=== PATIENT | female | born 1995 | race African-American/Black ===

== ENCOUNTER 2025-02-04 12:32 | Outpatient (AMB) | payer OTHER, SELFPAY ==
--- NOTE | 2025-02-04 12:52 | MHC.OFFVIS ---
Intake Visit Reasons: EPILEPSY Allergies peanut Allergy (Unknown, Verified 01/28/25 09:15) Unknown Seasonal Allergies Allergy (Unknown, Verified 01/28/25 09:15) Unknown HPI Comments Details: The patient is a 29-year-old female presenting with a history of epilepsy, diagnosed during four years ago. The seizures are characterized by an aura of altered sensory perception followed by generalized tonic-clonic activity, mild shaking, and postictal symptoms of fatigue and headaches. The patient has been off her antiepileptic medication (Keppra) for two years and reported the last seizure as having occurred in June over ten months ago. There is no documentation of injuries linked to her seizures, and she does not drive, adhering to safety measures due to her condition. A positive family history of seizures exists on her paternal side, but she denies any similar episodes in her children. The patient also reports past episodes of syncope during childhood summer months. Her medical history included EEG and MRI, with no recent repeat evaluations. [facility] Medical History (Updated 02/04/25 @ 13:14 by Mary Downing MD) Obesity HLD (hyperlipidemia) Epilepsy Hypertension Surgical History (Updated 01/28/25 @ 09:13 by Shereen Paz CMA) Hx of cholecystectomy Hx of tonsillectomy Family History (Updated 01/28/25 @ 09:15 by Shereen Paz CMA) Mother Diabetes mellitus Lupus (systemic lupus erythematosus) Hypertension Stroke Brain aneurysm Review of Systems Const Details: - Neurological: Reports seizures characterized by auras, tonic-clonic movements, postictal fatigue and headaches. Denies recent seizures since June. - Musculoskeletal: Denies any recent head injuries. - Psychiatric: Denies any hallucinations or delusions. Physical Exam Neuro Other: Mental Status: Alert and oriented to person, place, and time. Normal attention. Normal spontaneous speech, fluency, and comprehension. No obvious issues with mood and memory. Affect is appropriate. Cranial Nerves: CN II: Visual franco full to confrontation, visual acuity intact. CN III, IV, : Pupils equal, round, reactive to light and accommodation. Extraocular movements are normal. CN V: Facial sensation is normal. CN VII: Facial movements symmetrical. CN VIII: Hearing intact to bedside conversation is normal. CN IX, X: Palate elevates symmetrically. CN XI: Shoulder shrug and head turn symmetrical. CN XII: Tongue midline without atrophy or fasciculations. Motor: Bulk and tone normal in all extremities. No significant muscle weakness in arms and legs. No drift. Reflexes: Deep tendon reflexes 2+ and symmetric. Plantar response down-going bilaterally. Coordination: Xiejgx-[id number] and giwp-kr-wyts testing normal. No dysmetria. Gait and Station: No obvious gait abnormality. No ataxia or instability. Extrapyramidal: Full facial expressions and blinking. No rigidity. Movements are appropriate with no tremor or abnormality. Speech: Normal; no dysarthria or tremor. Assessment & Plan Assessment & Plan (1) Epilepsy: Code(s): G40.909 - Epilepsy, unspecified, not intractable, without status epilepticus Category: Medical Qualifiers: Epilepsy type: unspecified Intractability: not intractable Status epilepticus: without status epilepticus Qualified Code(s): G40.909 - Epilepsy, unspecified, not intractable, without status epilepticus Plan: I will work with her to evaluate the need for continued medication or alternate strategies following further diagnostic evaluation with repeat EEG and MRI review. Access to historical test data will aid in addressing concerns of whether epilepsy is ongoing in subtler forms. Despite remaining off medication, the importance of diagnostics for seizure prediction and prevention was emphasized?utilizing EEG to potentially observe electrical activity. Recommendations of non-pharmacological considerations were given, aligned with her driving status and lifestyle risks. We may need to revisit pharmacotherapy if clinical risk assessment dictates. Exploring genetic predispositions is also a consideration given familial history. Plan Impression and recommendations: 29 years old woman probably with epilepsy comprised of complex partial secondarily generalized seizures of unknown etiology. She has not been taking any medicine and her last seizure was in June of 2024. We had bertrand discussion about diagnostic and therapeutic approach of this condition. Baseline EEG was requested and she was advised to fracture previous EEGs and bring CTA of her brain scan for review at next visit. Orders: Orders EEG electroencephalogram Today G40.909 - Epilepsy, unspecified, not intractable, without status epilepticus Coding Level of Care Code New Pt Level 4 (70098) Diagnoses Nonintractable epilepsy without status epilepticus, unspecified epilepsy type G40.909 Epilepsy type: unspecified Intractability: not intractable Status epilepticus: without status epilepticus
--- OUTSIDE RECORDS SUMMARY | 2025-02-04 13:40 | XMS_ITS | Clinical Summary ---
Author Organization [facility] ity Address [address] [place] [address] Care Team Providers Care Bulb Packer Name Role Phone Unavailable Primary Care Provider Unavailabl e Social History Tobacco Use Types Packs/Day Years Used Date Smoking Tobacco: Never Assessed Comments Unknown Sex and Gender Information Value Date Recorded Sex Assigned at Not on file Legal Sex Female 6:57 PM EST Gender Identity Not on file Sexual Orientation Not on file Plan of Treatment Health Maintenance Due Date Last Done Comments DTaP,Tdap,and Td Vaccines (1 - Tdap) 2015 Hepatitis B Vaccines (1 of 3 - 19+ 3-dose series) 2015 Cervical Cancer Screening: P ap Smear 2017 HIV Screening 05/15/2022 Hepatitis C Screening 05/15/2022 Social Influencers of Health Screening 05/15/2022 COVID-19 Vaccine ( - 2023-2 5 season) 2024 Depression Screening 06/13/2024 Influenza Vaccine (#1) 2025 HIB Vaccines Aged Out No longer eligi ble based on patient's age to complete this topic HPV Vaccines Aged Out No longer eligi ble based on patient's age to complete this topic Hepatitis A Vaccines Aged Out No long er eligible based on patient's age to complete this topic IPV Vaccines Aged Out No longer eligi ble based on patient's age to complete this topic MMR Vaccines Aged Out No longer eligi ble based on patient's age to complete this topic Meningococcal ACWY Vaccine Aged Out N o longer eligible based on patient's age to complete this topic Meningococcal B Vaccine Aged Out No l onger eligible based on patient's age to complete this topic Pneumococcal Vaccine: Pediat rics (0 to 5 Years) and At-Risk Patients (6 to 49 Years) Aged Out No longer eligible b ased on patient's age to complete this topic RSV Immunization Patients Un archie 20 months Aged Out No longer eligible b ased on patient's age to complete this topic Varicella Vaccines Aged Out No longer eligible based on patient's age to complete this topic
--- OUTSIDE RECORDS SUMMARY | 2025-02-04 13:40 | XMS_ITS | Clinical Summary ---
Author Organization [facility] Address [address] [place] [address] Care Team Providers Care First Aid Trainer Name Role Phone Kari Salcedo MD Primary Care Provider Allergies Active Allergy Reactions Criticality Noted Date Comments Peanut Rash 04/25/2020 Medications metroNIDAZOLE (FLAGYL) 500 mg tablet Take 500 mg by mouth 2 times a day. Active famotidine (PEPCID) 20 mg tablet Take 1 tablet (20 mg total) by mouth 2 times a day. 30 tablet 12/28/2018 Active amoxicillin (AMOXIL) 500 mg capsule Take 1 capsule (500 mg total) by mouth 3 times a day. 21 capsule 04/13/2019 Active vitamin ( PLUS) 27 mg iron- 1 mg tablet Take 1 tablet by mouth daily. Active sulfamethoxazol e-trimethoprim (BACTRIM DS) 800-160 mg tablet Take 1 tablet by mouth 2 times a day. Active triamcinolone acetonide (KENALOG) 0.1% creamIndication s:Dermatitis APPLY TO RASH ON BODY TWICE A DAY UNTIL RESOLVED, NOT FOR USE ON FACE. 80 g 2 09/15/2020 Active levETIRAcetam (KEPPRA) 750 mg tablet TAKE 1 TABLET BY MOUTH TWICE A DAY 60 tablet 5 09/02/2021 Active Active Problems Problem Noted Date Diagnosed Date Seizure 11/26/2019 Otalgia of right ear 12/10/2014 Impacted cerumen of right ear 12/10/2014 exam 12/01/2012 Immunizations Immunization Administration Dates Next Due Hepatitis B adult (ENGERIX-B /RECOMBIVAX HB ADULT) vaccine 1 mL IM 01/08/2017 Family History Medical History Relation Name Comments Asthma Father Hypertension Father Diabetes Mother Lupus Mother Stroke Mother Relation Name Status Comments Father Alive Mother Alive Social History Tobacco Use Types Packs/Day Years Used Date Smoking Tobacco: Never Smokeless Tobacco: Never Comments:: Alcohol Use Standard Drinks/Week Comments No 0 (1 standard drink = 0.6 oz pur e alcohol) Comments No Sex and Gender Information Value Date Recorded Sex Assigned at Not on file Legal Sex Female 1:06 AM EDT Gender Identity Not on file Sexual Orientation Not on file Last Filed Vital Signs Vital Sign Reading Time Taken Comments Blood Pressure 107/68 09/09/2020 12:32 PM EDT Pulse 78 09/09/2020 12:32 PM EDT Temperature 37 C (98.6 F) 09/09/2020 12:32 PM EDT Respiratory Rate 18 09/09/2020 12:32 PM EDT Oxygen Saturation 100% 09/09/2020 12:32 PM EDT Inhaled Oxygen Concentration - - Weight 83.9 kg (185 lb) 05/15/2020 9:33 AM EST Height 157.5 cm (5' 2 ) 05/15/2020 9:33 AM EST Body Mass Index 33.84 05/15/2020 9:33 AM EST Plan of Treatment Health Maintenance Due Date Last Done Comments HIV Screening 1996 COVID-19 Vaccine (2023-2 5 season) 2024 Alcohol/Substance Use Screening 06/13/2024 Influenza Vaccine (#1) 2025 0, 04/06/2016, 03/13/2013, Additional history exists DTaP,Tdap,and Td Vaccines (1 0 - Td or Tdap) 10/18/2029 10/19/2019, 09/02/2017, 01/08/2017, Additional history exists RSV Vaccine (60+ years old a nd patients) (1 - 1-dose 75+ series) 2071 Pneumococcal Vaccine: Pediat karissa (0-5 Years) and At-Risk Patients (6-50 Years) Completed 11/18/2000 Varicella Vaccines Completed 07/26/2011, 09/30/1998 Hepatitis B Vaccines Completed 01/08/2017, 09/29/2006, 02/26/1997, Additional history exists Insurance [employer] [facility] [employer] Advance Directives Documents on File Type Date Recorded Patient Fast Food Cook Expl [facility] Care Proxy 10/19/2012 [id number] Care Teams First Aid Trainer Relationship Specialty Start Date End Date Kari Salcedo MD PCP - General 08/21/19
--- OUTSIDE RECORDS SUMMARY | 2025-02-04 13:40 | XMS_ITS | Clinical Summary ---
Author Organization [facility] Address [address] [place] [phone] Phone Care Team Providers Care Cheerleading Coach Name Role Phone Pcp, Unknown Primary Care Provider Unavailabl e Allergies Active Allergy Reactions Criticality Noted Date Comments Peanut Rash Low 04/25/2020 Medications topiramate (TOPAMAX) 50 MG tablet Take 1 tablet (50 mg total) by mouth daily for 7 days, THEN 1 tablet (50 mg total) 2 (two) times a day for 7 days, THEN 1.5 tablets (75 mg total) 2 (two) times a day for 7 days, THEN 2 tablets (100 mg total) 2 (two) times a day for 7 days. On week 3 please take 50 mg in the morning and 100 mg at night. 70 tablet 06/24/2024 Active Social History Tobacco Use Types Packs/Day Years Used Date Smoking Tobacco: Never Smokeless Tobacco: Never Tobacco Cessation:Counseling Given: Not Answered Alcohol Use Standard Drinks/Week Comments Yes 0 (1 standard drink = 0.6 oz pur e alcohol) Education Answer Date Recorded Are you interested in more education? Not on shilpi e 06/24/2024 Are you concerned about learning? Not on file 06/24/2024 No 06/24/2024 No 06/24/2024 Digital Access Answer Date Recorded No 06/24/2024 No 06/24/2024 Reliable internet access at home? Not on file 06/24/2024 Device with a working camera? Not on file Intimate Partner Violence Answer Date R ecorded Are you denied basic needs s uch as food, clothing, or medical care? No 06/24/2024 In the past 12 months have y ou been in a relationship with a person who hurts, threatens, or tries to control you? No 06/24/2024 Are you denied basic needs s uch as food, clothing, or medical care? No 06/24/2024 In the past 12 months have y ou been in a relationship with a person who hurts, threatens, or tries to control you? No 06/24/2024 Comments Unknown Sex and Gender Information Value Date Recorded Sex Assigned at Female 06/24/2024 9:39 AM EST Legal Sex Female 3:07 PM EST Gender Identity Female 06/24/2024 9:39 AM EST Sexual Orientation Don't know 06/24/2024 10 :13 AM EST Last Filed Vital Signs Vital Sign Reading Time Taken Comments Blood Pressure 112/76 06/24/2024 12:00 PM EST Pulse 62 06/24/2024 12:00 PM EST Temperature 36.8 C (98.3 F) 06/24/2024 12:00 PM EST Respiratory Rate 11 06/24/2024 12:00 PM EST Oxygen Saturation 92% 06/24/2024 12:00 PM EST Inhaled Oxygen Concentration - - Weight 92.7 kg (204 lb 4.8 oz) 06/24/2024 9:51 A M EST Height 157.5 cm (5' 2 ) 06/24/2024 9:51 AM EST Body Mass Index 37.37 06/24/2024 9:51 AM EST Plan of Treatment Health Maintenance Due Date Last Done Comments Adult Td,Tdap Booster 1996 DEPRESSION SCREENING 2008 HEPATITIS C SCREENING 2014 HIV ONE-TIME SCREENING (18-6 5 YEARS) 2014 PAP SMEAR 2017 SMOKING STATUS SCREENING (On ce After 26 Yrs) 2022 COVID-19 VACCINE (2023-2 5 season) 2024 HEPATITIS A VACCINES Aged Out No long er eligible based on patient's age to complete this topic HIB VACCINES Aged Out No longer eligi ble based on patient's age to complete this topic MENINGOCOCCAL VACCINES (ACWY) Aged Out No longer eligible based on patient's age to complete this topic MENINGOCOCCAL VACCINES (B) Aged Out N o longer eligible based on patient's age to complete this topic PNEUMOCOCCAL VACCINES (0-49 years) Aged Out No longer eligible based on patient's age to complete this topic Medical Devices Not on file Insurance [facility] Care Teams Cheerleading Coach Relationship Specialty Start Date End Date Pcp, Unknown PCP - General 06/24/24 Additional Source Comments The information contained in this document represents components of the legal health record. It is not the complete legal health record.[facility]
--- OUTSIDE RECORDS SUMMARY | 2025-02-04 13:41 | XMS_ITS | Patient Health Record ---
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 Metabolic Panel [id number] Reviewed date:01/22/2025 07:37:03 AM Interpretation: Performing Lab:[facility], [address] [place] [address] Avenue, [place], Phone - [phone], Director - Patricia Notes/Report: Glucose 74 70-99 mg/dL BUN 13 6-20 mg/dL Creatinine 0.68 0.57-1.00 mg/dL eGFR 122 >59 mL/min/1.73 BUN/Creatinine Ratio 19 9-23 Sodium 140 134-144 mmol/L Potassium 3.8 3.5-5.2 mmol/L Chloride 104 96-106 mmol/L Carbon Dioxide, Total 18 20-29 mmol/L Calcium 9.9 8.7-10.2 mg/dL Protein, Total 7.4 6.0-8.5 g/dL Albumin 4.4 4.0-5.0 g/dL Globulin, Total 3.0 1.5-4.5 g/dL Bilirubin, Total 0.8 0.0-1.2 mg/dL Alkaline Phosphatase 62 44-121 IU/L AST (SGOT) 25 0-40 IU/L Lipid Panel With LDL/HDL Rat [id number] Reviewed date:01/22/2025 07:35:33 AM Interpretation: Performing Lab:[facility] [place], [address], [place], Phone - [phone], Director - Patricia Notes/Report: Cholesterol, Total 244 100-199 mg/dL Triglycerides 104 0-149 mg/dL HDL Cholesterol 53 >39 mg/dL VLDL Cholesterol Turner 18 5-40 mg/dL LDL Chol Calc ([facility]) 173 0-99 mg/dL LDL/HDL Ratio 3.3 0.0-3.2 ratio LDL/HDL Ratio Men Women 1/2 Avg.Risk 1.0 1.5 Avg.Risk 3.6 3.2 2X Avg.Risk 6.2 5.0 3X Avg.Risk 8.0 6.1 CBC with Diff, Platelet, NLR [id number] Reviewed date:01/22/2025 07:32:39 AM Interpretation: Performing Lab:[facility], [address], [place], Phone - [phone], Director - Patricia Notes/Report: WBC 10.5 3.4-10.8 x10E3/uL RBC 4.50 3.77-5.28 x10E6/uL Hemoglobin 12.5 11.1-15.9 g/dL Hematocrit 39.1 34.0-46.6 % MCV 87 79-97 fL MCH 27.8 26.6-33.0 pg MCHC 32.0 31.5-35.7 g/dL RDW 14.0 11.7-15.4 % Platelets 350 150-450 x10E3/uL Neutrophils 64 Not Estab. % Lymphs 28 Not Estab. % Monocytes 7 Not Estab. % Eos 1 Not Estab. % Basos 0 Not Estab. % Neutrophils (Absolute) 6.6 1.4-7.0 x10E3/uL Lymphs (Absolute) 3.0 0.7-3.1 x10E3/uL Neut/Lymph Ratio 2.2 0.0-2.9 ratio Published COVID-19 studies suggest: Low likelihood of severe COVID-19 disease progression 0.0-2.9 High likelihood of severe COVID-19 disease progression >4.9 Monocytes(Absolute) 0.7 0.1-0.9 x10E3/uL Eos (Absolute) 0.1 0.0-0.4 x10E3/uL Baso (Absolute) 0.0 0.0-0.2 x10E3/uL Immature Granulocytes 0 Not Estab. % Immature Grans (Abs) 0.0 0.0-0.1 x10E3/uL Reason For Referral Reason Pap smear Please e valuate and treat Diagnosis 1 Encounter for gyneco logical examination (general) (routine) without abnormal findings (Z01.419) Referral Organization [facility] Referring Provider First Name Rosa Referring Provider Last Name Soila Referring Provider Speciality Internal M edicine Referred Provider Specialty Assistant Professor Of Psychology General Notes Please call the ovi ent to schedule the appointment, [facility] [employer]. Please contact them at [phone], Eva Butcher 11/20/2024 04:45:07 PM > Referral Priority Routine Reason epilepsy, patient do es not want [facility] neurology Please evaluate and treat Diagnosis 1 Family history of ep ilepsy and other diseases of the nervous system (Z82.0) Referral Organization [facility] Referring Provider First Name Rosa Referring Provider Last Name Soila Referring Provider Speciality Internal M edicine Referred Provider Specialty Neurology General Notes Please call the ovi ent to schedule the appointment, Encounter created and SMS sent to the pt., Eva Butcher 12/03/2024 03:22:33 PM > Referral Priority Routine Problems Problem Type SNOMED Code ICD Code Onset Dates Problem Status W/U Status Risk Notes Problem Obese class II (037336733824867) Body mass index [BMI] 35.0-35.9, adult (Z68.35) Active confirmed Problem Essential hypertension (74784664) HTN (hypertensi on), benign (I10) Active confirmed Vital Signs Heart Rate 106 /min 01/21/2025 Temperature 97.1 degrees Fahrenheit 01/21/2025 Oximetry 98 % 01/21/2025 Blood pressure diastolic 72 mm Hg 01/21/2025 Height 5'2'' in 01/21/2025 Blood pressure systolic 110 mm Hg 01/21/2025 Weight 195.1 lbs 01/21/2025 BMI 35.68 kg/m2 01/21/2025 Encounters Encounter Location Date Provider Diagnosis [facility] [address] [place] [address] 11/14/2024 Rosa Cm HTN (hypertension), benign I10 ; Hyperlipidemia, mixed E78.2 and Obesity, class [address] [address] 01/21/2025 Rosa Cm Annual physical exam Z00.00 ; Encounter for screening for depression Z13.31 ; Obesity, class 2 E66.812 ; Body mass index [BMI] 35.0-35.9, adult Z68.35 and HTN (hypertension), benign I10 [address] [address] 12/03/2024 BIJAL HERNANDEZ Assessments Encounter Date Diagnosis (ICD Code) Assessment Notes Treatment Notes Treatment Clinical Notes Section Notes 11/14/2024 HTN (hypertension) , benign (ICD-10 - I10) 29-year-old lady overweight with history of epilepsy not on medications anymore is here today to establish PCP. Hypertension screening, blood pressure is 110/78. Currently stable we will get a basic metabolic panel. Hyperlipidemia screening check a lipid profile History of epilepsy 4 years ago was on Keppra and then tapered off. She has no seizures since 2 years. We will make a neurology referral. Obesity class II. Discussed with patient about calorie count portion control low carb diet and increasing her exercise. She understands and will follow. Anxiety and depression she denies any symptoms of anxiety or depression. Screening lab work slip given today 01/21/2025 Encounter for screening for depression (ICD-10 - Z13.31) 29-year-old lady overweight with history of epilepsy not on medications anymore is is here today for complete physical exam. Hyperlipidemia screening blood work is currently pending History of epilepsy 4 years ago was on Keppra and then tapered off. She has no seizures since 2 years. she has a neurology referral and will follow up Obesity class II. BMI 35, patient has been following strict diet, she is also doing calorie count, she does not get to exercise much due to her kids and work but is trying to lose weight. Nutritional counseling done Anxiety and depression she denies any symptoms of anxiety or depression., PHQ 9 is 0 patient has done her lab work this morning we will follow up on it Age specific screening up-to-date 01/21/2025 Annual physical exam (ICD-10 - Z00.00) 29-year-old lady overweight with history of epilepsy not on medications anymore is is here today for complete physical exam. Hyperlipidemia screening blood work is currently pending History of epilepsy 4 years ago was on Keppra and then tapered off. She has no seizures since 2 years. she has a neurology referral and will follow up Obesity class II. BMI 35, patient has been following strict diet, she is also doing calorie count, she does not get to exercise much due to her kids and work but is trying to lose weight. Nutritional counseling done Anxiety and depression she denies any symptoms of anxiety or depression., PHQ 9 is 0 patient has done her lab work this morning we will follow up on it Age specific screening up-to-date 11/14/2024 Hyperlipidemia , mixed (ICD-10 - E78.2) 29-year-old lady overweight with history of epilepsy not on medications anymore is here today to establish PCP. Hypertension screening, blood pressure is 110/78. Currently stable we will get a basic metabolic panel. Hyperlipidemia screening check a lipid profile History of epilepsy 4 years ago was on Keppra and then tapered off. She has no seizures since 2 years. We will make a neurology referral. Obesity class II. Discussed with patient about calorie count portion control low carb diet and increasing her exercise. She understands and will follow. Anxiety and depression she denies any symptoms of anxiety or depression. Screening lab work slip given today 01/21/2025 Obesity, class 2 (ICD-10 - E66.812) 29-year-old lady overweight with history of epilepsy not on medications anymore is is here today for complete physical exam. Hyperlipidemia screening blood work is currently pending History of epilepsy 4 years ago was on Keppra and then tapered off. She has no seizures since 2 years. she has a neurology referral and will follow up Obesity class II. BMI 35, patient has been following strict diet, she is also doing calorie count, she does not get to exercise much due to her kids and work but is trying to lose weight. Nutritional counseling done Anxiety and depression she denies any symptoms of anxiety or depression., PHQ 9 is 0 patient has done her lab work this morning we will follow up on it Age specific screening up-to-date 01/21/2025 Body mass index [BMI] 35.0-35.9, adult (ICD-10 - Z68.35) 29-year-old lady overweight with history of epilepsy not on medications anymore is is here today for complete physical exam. Hyperlipidemia screening blood work is currently pending History of epilepsy 4 years ago was on Keppra and then tapered off. She has no seizures since 2 years. she has a neurology referral and will follow up Obesity class II. BMI 35, patient has been following strict diet, she is also doing calorie count, she does not get to exercise much due to her kids and work but is trying to lose weight. Nutritional counseling done Anxiety and depression she denies any symptoms of anxiety or depression., PHQ 9 is 0 patient has done her lab work this morning we will follow up on it Age specific screening up-to-date 11/14/2024 Obesity, class 2 (ICD-10 - E66.812) 29-year-old lady overweight with history of epilepsy not on medications anymore is here today to establish PCP. Hypertension screening, blood pressure is 110/78. Currently stable we will get a basic metabolic panel. Hyperlipidemia screening check a lipid profile History of epilepsy 4 years ago was on Keppra and then tapered off. She has no seizures since 2 years. We will make a neurology referral. Obesity class II. Discussed with patient about calorie count portion control low carb diet and increasing her exercise. She understands and will follow. Anxiety and depression she denies any symptoms of anxiety or depression. Screening lab work slip given today 01/21/2025 HTN (hypertension) , benign (ICD-10 - I10) 29-year-old lady overweight with history of epilepsy not on medications anymore is is here today for complete physical exam. Hyperlipidemia screening blood work is currently pending History of epilepsy 4 years ago was on Keppra and then tapered off. She has no seizures since 2 years. she has a neurology referral and will follow up Obesity class II. BMI 35, patient has been following strict diet, she is also doing calorie count, she does not get to exercise much due to her kids and work but is trying to lose weight. Nutritional counseling done Anxiety and depression she denies any symptoms of anxiety or depression., PHQ 9 is 0 patient has done her lab work this morning we will follow up on it Age specific screening up-to-date Plan Of Treatment Next Appt Details Provider Name:Rosa Cm, 0 01/22/2026 02:30:00 PM, [address], [place], [address], Insurance Providers Payer Name Payer Address Payer Phone Subscriber Number Group Number Insured Name Patient Relationship to Insured Coverage Start Date Coverage End Date [facility]) [address] [address] [place] [address] [id number] Mariaelena Grier Self - patient is the insured [employer] [facility]) [address] [address] [place] [address] [id number] Mariaelena Grier Self - patient is the insured Medical (General) History Medical History History ICD Code history of epilepsy Surgical History Surgery Date(Month/Year) cholecystectomy Tonsillectomy
== END 2025-02-04 13:16 | disposition home or self-care (01) ==
LOC: HO.HSM 12:32
PROVIDERS: PCP Hospitalist; Visit Provider Psychiatry & Neurology Neurology
DX: G40.909 Epilepsy, unspecified, not intractable, without status epilepticus (principal)
CPT/HCPCS: 99204

== ENCOUNTER → 2025-02-04 12:32 | Outpatient (BNVA) | payer OTHER, SELFPAY | PROVIDERS: PCP Hospitalist; Visit Provider Psychiatry & Neurology Neurology | DX: G40.909 Epilepsy, unspecified, not intractable, without status epilepticus (principal) | CPT/HCPCS: 99202 ==